=== PATIENT | female | born 1970 | race Caucasian/White ===

== ENCOUNTER → 2018-08-12 10:51 | Outpatient (CLI) | payer OTHER, SELFPAY ==
[2018-08-14 13:02] LABS: HPV Reflexed? NOT INDICATED
== END ==
PROVIDERS: Visit Provider Obstetrics & Gynecology
DX: Z12.4 Encounter for screening for malignant neoplasm of cervix (principal)
CPT/HCPCS: 88175; G0145

== ENCOUNTER 2023-12-25 16:44 | Emergency (ER) | payer OTHER, SELFPAY ==
[2023-12-25 16:45] VITALS: BP 153/82; PULSE 71; RESP 16; TEMP 35.8; O2SAT 100; BMI 28.2
--- NOTE | 2023-12-25 17:30 | EKG12_ITS ---
Test Reason : CP Blood Pressure : / mmHG Vent. Rate : 057 BPM Atrial Rate : 057 BPM P-R Int : 158 ms QRS Dur : 078 ms QT Int : 442 ms P-R-T Axes : 054 -07 042 degrees QTc Int : 430 ms Sinus bradycardia Otherwise normal ECG Confirmed by Alcides Carbajal ([id number]), fan mail editor AMA CASTAÑEDA ([id number]) on 12/30/2023 1:48:22 PM Referred By: Confirmed By:Alcides Carbajal
--- NOTE | 2023-12-25 17:31 | EDS_ITS ---
HPI History of Present Illness Chief Complaint: Chest Pain Informant: patient and spouse/S.O. Narrative Narrative: 53-year-old female presenting to the emergency room with a chief complaint of chest pain. Patient states on Friday she developed a midsternal tightness. She states that she went to urgent care was told that she may have bronchitis and she was started on doxycycline and prednisone. Her symptoms persisted and then got better yesterday and today they are no longer present. She had an order for chest x-ray which she obtained today and she shows me the results from the [facility] which shows a negative appearing chest x-ray. Patient denies any familial history of early coronary artery disease. No history of hypertension hypercholesterolemia or diabetes. She is a non-smoker. She denies any cough or fever. She notes that nothing seems to make the pressure in her chest worse. She has been eating and drinking normally. Again she has not had any symptoms today. PFSH PFS Medical History no medical history Home Medications ?Medication ?Instructions ?Recorded ?Last Taken ?Type doxycycline hyclate 100 mg tablet 100 mg PO BID 12/25/23 Unknown History prednisone 10 mg tablet 10 mg PO .COMPLEX 12/25/23 Unknown History Allergy/AdvReac Type Severity Reaction Status Date / Time No Known Allergies Allergy Verified 12/25/23 16:46 Surgical History no surgical history Social History Smoking Status: Never smoker ROS ROS ED Constitutional Constitutional ED: Denies chills, fever(s) or weight loss Eyes Eyes: Denies change in vision or diplopia ENT ENT ED: Reports rhinorrhea; Denies ear pain or sore throat Cardiovascular Cardiovascular: Reports chest pain; Denies orthopnea, palpitations or racing heartbeat Respiratory/Chest Respiratory/Chest: Denies cough, dyspnea or orthopnea Gastrointestinal Gastrointestinal: Denies abdominal pain, diarrhea, nausea or vomiting Genitourinary Genitourinary ED: Denies dysuria, hematuria or urinary frequency Musculoskeletal Musculoskeletal: Denies arthralgias or myalgias Integumentary Denies abscess or rash Neurologic Neurologic: Denies headache(s) or weakness Psychiatric Psychiatric: Denies anxiety, depression, suicidal ideation or suicidal thoughts Endocrine Endocrinology: Denies polydipsia, polyphagia or polyuria Allergic/Immunologic Allergic/Immunologic ED: Denies mouth swelling, tongue swelling or urticaria EXAM Physical Exam Const Vital Signs: 12/25/23 16:45 12/25/23 17:15 12/25/23 17:44 Temperature 96.5 F L Temperature Source Temporal Pulse Rate 71 54 L Respiratory Rate 16 19 H Respiratory Effort Normal Blood Pressure 153/82 H 138/86 H Blood Pressure Mean 105 103 Pulse Ox 100 99 Oxygen Delivery Method Room Air Room Air Positive well nourished and well developed General Appearance ED: well developed and NAD HEENT Reports normocephalic, head/scalp atraumatic and moist mucous membranes Eyes PERRL and EOMs intact bilaterally Neck no lymphadenopathy, supple and no JVD Resp normal respiratory effort and clear to auscultation bilaterally Cardio regular rate, regular rhythm and no murmurs GI normal to inspection, nondistended, normoactive bowel sounds and non-tender Palpation: soft Back/Spine no CVA tenderness and normal ROM Extremity normal to inspection General Extremety ED: Negative for edema General Extremity: Negative for edema Neuro oriented x3 and CN's II-XII intact bilaterally Sensorium / Orientation: alert Motor Exam: strength 5/5 throughout Psych mental status grossly normal Mood & Affect: Negative for depressed or tearful Skin no rashes or lesions noted and no wounds MDM MDM MDM Narrative Medical decision making narrative: Differential diagnosis would include but not limited to bronchospasm pleural effusion acute coronary syndrome pulmonary embolism aortic dissection/aneurysm pneumonia pneumothorax esophagitis chest wall pain Patient has a Wells score for PE 0. She is asymptomatic. Patient is EKG shows a sinus bradycardia at a rate of 57 bpm. Patient's troponin is normal at 5. Given the patient is asymptomatic she had chest pain waxing and waning over the preceding previous 5 days. I do not think this is cardiac in nature. I do not believe she has a pulmonary embolism. A chest x-ray was not obtained as she had 1 this morning and showed me the results but I was not able to visualize the images directly myself. I do not think that she has dissection. I think it is reasonable that the patient can be discharged home if she has return of symptoms she may return here for evaluation. History & Record Review Discussion w/independent historian: Patient and Significant other Lab Data Attestation: I reviewed the patient's lab results. Labs: Laboratory Results - last 24 hr 12/25/23 17:12 WBC 12.5 H RBC 4.65 Hgb 14.0 Hct 40.8 MCV 87.7 MCH 30.1 MCHC 34.3 RDW Std Deviation 37.2 RDW Coeff of [place] 11.7 Plt Count 298 MPV 9.4 Immature Gran % (Auto) 0.300 Neut % (Auto) 49.7 Lymph % (Auto) 38.6 [place] % (Auto) 9.0 Eos % (Auto) 1.7 Baso % (Auto) 0.7 Absolute Neuts (auto) 6.2 Absolute Lymphs (auto) 4.82 H Nucleated RBC % 0 Sodium 140 Potassium 3.2 L Chloride 106 Carbon Dioxide 24.0 Anion Gap 10 BUN 23 H Creatinine 0.71 Estim Creat Clear Calc 97.40 Est GFR (MDRD) Af Amer 111 Est GFR (MDRD) Non-Af 92 BUN/Creatinine Ratio 32.5 H Glucose 97 Calcium 9.5 Troponin I High Sens 5 Discharge Plan Triage Chief Complaint: Chest Pain ED Provider: Darshan Cheng Dx/Rx/DC Orders Clinical Impression: Chest pain Instructions: ED Chest Pain, Noncardiac Prescriptions: No Action prednisone 10 mg tablet 10 mg PO .COMPLEX Rx Instructions: 10 mg orally; SEE TAPER DOSE doxycycline hyclate 100 mg tablet 100 mg PO BID Primary Care Provider: Berhane Moreno Referrals: Berhane Moreno MD [Primary Care Provider] - As Needed Print Language: Other Disposition Disposition: Home, Self Care
[2023-12-25 17:44] VITALS: BP 138/86; PULSE 54; RESP 19; O2SAT 99
[2023-12-25 17:52] LABS: Absolute Lymphocyte Count 4.82 X10^3/uL (0.83-4.51); Absolute Neutrophil Count 6.2 X10^3/uL (2.0-7.7); Basophil# 0.09 X10^3/uL; Basophil% 0.7 % (0-1); Eosinophil# 0.21 X10^3/uL; Eosinophils% 1.7 % (0-5); Hematocrit 40.8 % (37-47); Lymphocyte # 4.82 X10^3/ul (0.83-4.51); Lymphocyte % 38.6 % (19-41); Mean Corp Hgb Conc 34.3 g/dL (32-36); Mean Corpuscular Hgb 30.1 pg (27.0-32.0); Mean Corpuscular Volume 87.7 fL (81-99); Mean Platelet Vol. 9.4 fl (6.2-12.0); Monocyte# 1.13 X10^3/uL; NRBC Flagged by Analyzer 0 % (0-5); Neutrophil % 49.7 % (47-70); Platelet Count 298 K/mm3 (150-450); RBC Distribution Width CV 11.7 % (11.6-14.6); RBC Distribution Width SD 37.2 fl (35.1-43.9); Red Blood Count 4.65 M/mm3 (4.2-5.4); White Blood Count 12.5 K/mm3 (4.4-11.0)
[2023-12-25 18:00] VITALS: BP 119/73; PULSE 56; RESP 16; O2SAT 99
[2023-12-25 18:19] LABS: Anion Gap 10 (5-15); BUN 23 mg/dL (7-18); BUN/Creat Ratio 32.5 RATIO (10-20); Calcium,Total 9.5 mg/dL (8.5-10.1); Chloride 106 mmol/L (98-107); Creatinine, Serum 0.71 mg/dL (0.55-1.02); EST Glomerular Filtration Rate 92 mL/min (>60); Est Glom Filt Rate - Afr Amer 111 mL/min (>60); Glucose 97 mg/dL (74-106); Potassium 3.2 mmol/L (3.5-5.1); Sodium Level 140 mmol/L (136-145); Troponin-I HS (w/2H Reflex) 5 pg/mL (3.0-54.0)
[2023-12-25 18:25] VITALS: BP 119/73; PULSE 56; RESP 16; TEMP 36.6; O2SAT 99
[2023-12-25 19:41] LABS: Reflex Troponin-HS? (from REC) Y
== END 2023-12-25 18:28 | disposition home or self-care (01) ==
PROVIDERS: Emergency Provider Emergency Medicine; PCP Family Medicine; Visit Provider Emergency Medicine
DX: R07.9 Chest pain, unspecified (principal)
CPT/HCPCS: 80048; 84484; 85025; 93005; 99284; A4216